=== PATIENT | male | born 1980 | race Caucasian/White ===

== ENCOUNTER 2017-01-01 01:03 | Emergency (ER) | payer MEDICARE, MEDICAID ==
[~2017-01-01] VITALS: Ht 160 cm; Wt 101.6 kg
[~2017-01-01 01:03] MED LIST: HYDR-4078 PO; NO HOME MEDS; TRAM50TA4 PO
--- OUTSIDE RECORDS SUMMARY | 2017-01-01 01:08 | XMS REPORT | Continuity of Care Document ---
Author Author [facility] Organization [facility] Address Unknown Phone Unavailable Allergies Active Description Code Type Severity Reaction Onset Reported/Identified Relationship to Patient Clinical Status Yes No Known Allergies No Known Allergies Drug Allergy Unknown N/A 01/17/2012 Medications Medication Packaging Start Date Stop Date Route Dosage Sig ceFAZolin 1GM VIAL VL 09/27/2015 09/27/2015 IV PRE-OP LACTATED RINGERS 1000 ML IV SOLN BAG 09/27/2015 09/27/2015 IV PRE-OP SODIUM CHLORIDE PF 0.9% 10ML INJ VL 09/27/2015 09/27/2015 IVP ONCE LACTATED RINGERS 1000 ML IV SOLN BAG 09/27/2015 09/27/2015 IV ONCE THROMBIN 5000 UNIT VIAL VL 09/27/2015 09/27/2015 TOP ONCE SODIUM CHLORIDE 0.9% 1000ML IRRIG SOLN EA 09/27/20152015 IRR ONCE VANCOMYCIN 1GM INJ VL 09/27/2015 09/27/2015 PB ONCE ceFAZolin 1GM VIAL VL 09/27/2015 09/27/2015 IVP ONCE BUPIVACAINE W/ EPI 0.25% INJ [10 ML] VL 09/27/2015 09/27/2015 ID ONCE MIDAZOLAM 2MG/2ML INJ VL 09/27/2015 09/27/2015 IV PRE-OP fentaNYL 100 MCG/2ML INJ AMP 09/27/2015 09/27/2015 IV PRE-OP PROPOFOL 1000MG/100ML INJ EA 09/27/2015 09/27/2015 IV ONCE fentaNYL 250 MCG/5ML INJ AMP 09/27/2015 09/27/2015 IV ONCE hydroMORPHONE 2MG/1ML INJ ML 09/27/2015 09/27/2015 IV ONCE * Ready to Reconcile EA 09/27/2015 09/27/2015 PO ASDIR SUCCINYLCHOLINE 100MG/5ML SYRINGE [COMPOUND] DOS 09/27/2015 IVP ONCE fentaNYL 250 MCG/5ML INJ AMP 09/27/2015 09/27/2015 IV ONCE SUCCINYLCHOLINE 100MG/5ML SYRINGE [COMPOUND] DOS 09/27/2015 IVP ONCE LIDOCAINE 2% SYRINGE [100MG/5ML] SYR 09/27/2015 09/27/2015 IVP ONCE ONDANSETRON 4MG/2ML INJ VL 09/27/2015 09/27/2015 IVP ONCE ROCURONIUM 50MG/5ML INJ VL 09/27/2015 09/27/2015 IVP ONCE fentaNYL 250 MCG/5ML INJ AMP 09/27/2015 09/27/2015 IV ONCE PROPOFOL 1000MG/100ML INJ EA 09/27/2015 09/27/2015 IV ONCE ceFAZolin 1GM VIAL VL 09/27/2015 09/28/2015 IVP Q8H&0000,0800, 1600 VANCOMYCIN 1GM INJ VL 09/27/2015 09/27/2015 PB ONCE hydroMORPHONE 2MG/1ML INJ ML 09/27/2015 09/27/2015 IV ONCE MAGNESIUM HYDROXIDE 2400MG/30ML SUSP EA 09/27/2015 09/26/2016 PO PRN MORPHINE 4MG/1ML SYRINGE ML 09/27/2015 09/26/2016 IVP [id number] OXYcodone/ACETAMINOPHEN 10-325 MG TABLET TAB 09/27/20152016 PO [id number] BISACODYL 10MG SUPPOS. SUP 09/27/2015 09/26/2016 MT* PRN ONDANSETRON 4MG TABLET TAB 09/27/2015 09/26/2016 PO [id number] DIAZEPAM 5MG TABLET TAB 09/27/2015 09/26/2016 PO [id number] BISACODYL 5MG TABLET TAB 09/27/2015 09/26/2016 PO PRN SODIUM CHLORIDE 0.9% 1000ML IV SOLN BAG 09/27/2015 09/28/2015 LVP 100ML/HR ONDANSETRON 4MG/2ML INJ VL 09/27/2015 09/26/2016 IVP [id number] hydroMORPHONE 2MG/1ML INJ ML 09/27/2015 09/27/2015 IV POST-OP ONDANSETRON 4MG/2ML INJ VL 09/27/2015 09/27/2015 IV POST-OP METOCLOPRAMIDE 10MG/2ML INJ VL 09/27/2015 09/27/2015 IVP ONCE METOCLOPRAMIDE 10MG TABLET TAB 09/27/2015 09/26/2016 PO [id number] METOCLOPRAMIDE 10MG/2ML INJ VL 09/27/2015 09/26/2016 IVP [id number] *HYDROcodone/ACETAMINOPHEN 10-325 MG TABLET TAB 10/26/2015 PO Q4-6HPRN Problems Date Dx Coded Attending Type Code Diagnosis Diagnosed By 08/07/2012 Perry ALBARRAN, Shadi Dunn 724.2 LUMBAGO 09/30/2015 JENARO CABELLO DF E66.01 Morbid (severe) obesity 09/30/2015 JENARO CABELLO DF M21.372 Foot drop, left foot 09/30/2015 JENARO CABELLO DF M43.17 Spondylolisthesis, lumbo 09/30/2015 JENARO CABELLO DF M54.17 Radiculopathy, lumbosacr 09/30/2015 JENARO CABELLO DF Z68.41 Body mass index (BMI) 40 Procedures Code Description Performed By Performed On 87.21 CONTRAST MYELOGRAM Baldemar ALBARRAN, Shahriar Suazo 08/07/2012 [id number] Fusion of Lumbosacral Joint with Autolog JENARO CABELLO 09/27/2015 [id number] Fusion of Lumbosacral Joint with Interbo JENARO CABELLO 09/27/2015 [id number] Resection of Lumbosacral Disc, Open Appr JENARO CABELLO 09/27/2015 [id number] Monitoring of Peripheral Nervous Electri JENARO CABELLO 09/27/2015 Results Test Result Range GRAM STAIN - 11/04/15 07:17 Microbiology GRAM STAIN - 11/04/15 07:18 Microbiology Encounters ACCT No. Visit Date/Time Discharge Status Pt. Type Provider Facility Loc./Unit Complaint [id number] 09/27/2015 11:02:00 09/30/2015 12: 23:00 DIS 01 JENARO CABELLO [facility] INPT NO KNOWN INJURY 09/27/15 RM,L5-S1 spondylolisthesis
--- OUTSIDE RECORDS SUMMARY | 2017-01-01 01:08 | XMS REPORT | Continuity of Care Document ---
Author Author [facility] Organization [facility] Address Unknown Phone Unavailable Support Name Relationship Address Phone WOLFGANG WYNNE DO Caregiver [facility] [address] [place] [address] SUDHA YOUNG MD Caregiver [address] [place] [address] KYLE CRAWFORD Next Of Kin [address] [place] [address] Insurance Providers Payer Name Policy Number Subscriber Name Relationship Medicare [id number] Shadi Crawford 18 Self Medicaid [place] [id number] Shadi Crawford 18 Self Problems Medical Problems Problem Onset Date Status Headache Unknown Active Hip pain Unknown Active Medications Medication Dose Route Sig Days/Qty Instructions Order Date Discontinued Date Status [None] 01/23/10 09/29/10 Discontinued Ibuprofen 400 Mg PO NEEDED 08/24/11 12/14/11 Discontinued [[place]] 5 Mg PO DAILY 12/14/11 04/10/12 Discontinued [[place]] 10 Mg PO DAILY 12/14/11 04/10/12 Discontinued Oxycodone Hcl/Acetaminophen 1 Tab PO 01/02/12 04/10/12 Discontinued [Lortab] 1 THREE TIMES A DAY 06/10/14 Active Cyclobenzaprine HCl 1 Tab PO THREE TIMES A DAY 06/10/14 Active Tramadol HCl 50 Mg PO Every 8 Hours PRN PAIN 06/10/14 Active Social History Social History Problem Response Recorded Date/Time Smoking Status Current some day smoker 06/10/2014 6:45pm Hx Substance Use No 06/10/2014 6:45pm Hx Alcohol Use Y SOCIALLY 06/10/2014 6:45pm Query Response Start Date Stop Date Smoking Status Unknown if ever smoked Hospital Discharge Instructions No hospital discharge instructions. Plan of Care No plan of care. Functional Status Query Response Date Recorded Physical Hygiene Self June 10, 2014 6:45pm Disabilities None June 10, 2014 6:45pm Devices Used None June 10, 2014 6:45pm Dressing Self June 10, 2014 6:45pm Ambulation Self June 10, 2014 6:45pm Diet Self June 10, 2014 6:45pm Mental Status Alert Oriented June 10, 2014 6:45pm Disabilities None June 10, 2014 6:45pm Devices Used None June 10, 2014 6:45pm Physical Hygiene Self June 10, 2014 6:45pm Dressing Self June 10, 2014 6:45pm Ambulation Self June 10, 2014 6:45pm Diet Self June 10, 2014 6:45pm Allergies, Adverse Reactions, Alerts Allergen Type Severity Reaction Status Last Updated No Known Allergies Active 06/10/14 Immunizations Name Given Type Hx Influenza Vaccination Y FALL 2013 Historical Hx Tetanus, Diptheria, Pertussis N 2000 Historical Hx Influenza Vaccination Y FALL 2013 Historical Hx Tetanus, Diptheria, Pertussis N 2000 Historical Vital Signs Acute Vital Signs Vital Response Date/Time Temperature (Fahrenheit) 97.7 deg F (96.8 - 99.1) Temperature (Calculated Celsius) 36.83810 degrees C (36.0 - 37.3) Pulse Rate (adult) 104 bpm (60 - 100) Respiratory Rate 18 breaths/min (10 - 20) O2 Sat by Pulse Oximetry 95 % (90 - 100) Blood Pressure 125/66 mm Hg Height 5 ft 3 in Weight 232 lb Body Mass Index 41.0 kg/m^2 Results Test Source Date Result Interp. Ref. Range Comments Alanine Aminotransferase (ALT/SGPT) January 20, 2011 4:27pm 41 U/L N 21-72 Albumin January 20, 2011 4:27pm 4.7 G/DL N 3.5-5.0 Albumin/Globulin Ratio January 20, 2011 4:27pm 1.7 RATIO N 1.1-2.2 Alkaline Phosphatase January 20, 2011 4:27pm 101 U/L N 38-126 Anion Gap June 10, 2014 6:47pm 17 MEQ/L H 5-15 Aspartate Amino Transf (AST/SGOT) January 20, 2011 4:27pm 34 U/L N 17-59 BUN/Creatinine Ratio June 10, 2014 6:47pm 19 RATIO N 6-26 Band Neutrophils # June 10, 2014 6:47pm 0.0 T/MM3 - Band Neutrophils % June 10, 2014 6:47pm 0.0 % N 0-6 Basophils # (Auto) January 20, 2011 4:27pm 0.1 T/MM3 N 0-0.2 Basophils # (Manual) June 10, 2014 6:47pm 0.0 T/MM3 N 0-0.2 Basophils % (Manual) June 10, 2014 6:47pm 0.0 % N 0-2 Basophils (%) (Auto) January 20, 2011 4:27pm 0.5 % N 0-2 Blood Urea Nitrogen June 10, 2014 6:47pm 21.0 MG/DL H 9-20 Calcium Level June 10, 2014 6:47pm 10.1 MG/DL N 8.4-10.2 Calculated Osmolality June 10, 2014 6:47pm 282 MOSM/KG H 261-280 Carbon Dioxide Level June 10, 2014 6:47pm 22 MEQ/L N 22-30 Chemistry Specimen Hemolysis June 10, 2014 6:47pm < 15 0-25 0-25: No Hemolysis.26-70: Slight Hemolysis - can falsely elevate K and Urine Protein. 71-285: Moderate Hemolysis - can falsely elevate K, Troponin I, CA 19-9, PTH, CSF GLucose, and Urine Protein, and can falsely decrease Phenytoin. 286-999: Gross Hemolysis - can falsely elevate K, Troponin I, CA 19-9, PTH, CSF Glucose, and Urine Protine, and can falsely decrease Phenytoin. Recommend specimen recollection. Chloride Level June 10, 2014 6:47pm 104 MEQ/L N 98-107 Cholesterol Level July 27, 2009 9:10am 267 MG/DL H 132-199 Cholesterol/HDL Ratio July 27, 2009 9:10am 5.8 RATIO H 0-5.0 Clostridium Difficile Toxin A & B January 28, 2008 9:19am Negative - Conjugated Bilirubin January 03, 2011 5:52pm 0.00 MG/DL N 0.00-0.30 Creatinine June 10, 2014 6:47pm 1.1 MG/DL N 0.8-1.5 Differential Total Cells Counted January 03, 2011 5:52pm 100 % - Eosinophils # (Auto) January 20, 2011 4:27pm 0.2 T/MM3 N 0-0.5 Eosinophils # (Manual) June 10, 2014 6:47pm 0.0 T/MM3 N 0-0.5 Eosinophils % (Manual) June 10, 2014 6:47pm 0.0 % N 0-4 Eosinophils (%) (Auto) January 20, 2011 4:27pm 1.4 % N 0-4 Free Thyroxine July 27, 2009 9:10am 0.92 NG/DL N 0.78-2.19 Globulin January 20, 2011 4:27pm 2.7 G/DL N 2.4-3.6 Glomerular Filtration Rate Calc June 10, 2014 6:47pm 76 - Glucose Level June 10, 2014 6:47pm 173 MG/DL H 75-110 HDL Cholesterol Direct July 27, 2009 9:10am 46 MG/DL N 40-60 Hematocrit June 10, 2014 6:47pm 49.6 % N 41-53 Hemoglobin June 10, 2014 6:47pm 17.0 GM/DL N 13.5-17.5 Icterus Index June 10, 2014 6:47pm < 2 0-7 Immature Granulocyte # (Auto) January 20, 2011 4:27pm 0.02 T/MM3 N 0.00- 0.03 Immature Granulocyte % (Auto) January 20, 2011 4:27pm 0.2 % N 0.0-0.5 Influenza Type A Antigen January 16, 2009 12:45pm Negative - Influenza Type B Antigen January 16, 2009 12:45pm Negative - LDL Cholesterol, Calculated July 27, 2009 9:10am 172.0 H 66-159 Lab Scanned Report January 03, 2011 10:17pm LAB TEST FORM REQUEST [id number] - Lipase January 21, 2008 10:00pm 135 U/L N 23-300 Lymphocytes # (Auto) January 20, 2011 4:27pm 3.0 T/MM3 N 1-4.8 Lymphocytes # (Manual) June 10, 2014 6:47pm 0.6 T/MM3 L 1-4.8 Lymphocytes % (Manual) June 10, 2014 6:47pm 6.0 % L 23-45 Lymphocytes (%) (Auto) January 20, 2011 4:27pm 27.8 % N 23-45 Mean Corpuscular Hemoglobin June 10, 2014 6:47pm 31.1 UUG N 26-34 Mean Corpuscular Hemoglobin Concent June 10, 2014 6:47pm 34.3 GM/DL N 31-37 Mean Corpuscular Volume June 10, 2014 6:47pm 90.8 UM3 N 80-100 Mean Platelet Volume June 10, 2014 6:47pm 10.4 UM3 N 9.4-12.4 Monocytes # (Auto) January 20, 2011 4:27pm 0.6 T/MM3 N 0-0.8 Monocytes # (Manual) June 10, 2014 6:47pm 0.0 T/MM3 N 0-0.8 Monocytes % (Manual) June 10, 2014 6:47pm 0.0 % N 0-9.0 Monocytes (%) (Auto) January 20, 2011 4:27pm 5.8 % N 0-9.0 Neutrophils # (Auto) January 20, 2011 4:27pm 6.8 T/MM3 N 1.8-7.7 Neutrophils # (Manual) June 10, 2014 6:47pm 8.6 T/MM3 H 1.8-7.7 Neutrophils % (Manual) June 10, 2014 6:47pm 92.0 % H 33-66 Neutrophils (%) (Auto) January 20, 2011 4:27pm 64.3 % N 33-66 Ova and Parasites (LAB) January 28, 2008 9:19am Sent out - Platelet Count June 10, 2014 6:47pm 232 T/MM3 N 130-400 Potassium Level June 10, 2014 6:47pm 4.4 MEQ/L N 3.6-5 RDW Standard Deviation June 10, 2014 6:47pm 40.9 FL N 36.9-50.2 Reactive Lymphocytes # June 10, 2014 6:47pm 0.2 T/MM3 H 0-0 Reactive Lymphocytes % June 10, 2014 6:47pm 2.0 % H 0-0 Red Blood Count June 10, 2014 6:47pm 5.46 M/MM3 N 4.50-5.90 Sodium Level June 10, 2014 6:47pm 143 MEQ/L N 134-144 Stool Occult Blood January 03, 2011 7:00pm Negative - Tests Not Done January 16, 2009 11:01am Not done - Has specimen been collected/obtained? Y Thyroid Stimulating Hormone (TSH) July 27, 2009 9:10am 2.38 MIU/ML N 0.47-4.68 Total Bilirubin January 20, 2011 4:27pm 1.00 MG/DL N 0.20-1.30 Total Protein January 20, 2011 4:27pm 7.4 G/DL N 6.3-8.2 Triglycerides Level July 27, 2009 9:10am 245 MG/DL H 40-160 Turbidity June 10, 2014 6:47pm < 20 0-20 Unconjugated Bilirubin January 03, 2011 5:52pm 0.40 MG/DL N 0.00-1.10 Urine Bilirubin January 03, 2011 5:52pm Negative - Urine Blood January 03, 2011 5:52pm Negative - Urine Collection Type January 03, 2011 5:52pm Voided - Urine Color January 03, 2011 5:52pm Yellow - Urine Culture Indicated January 03, 2011 5:52pm Cult not indicated - Urine Glucose (UA) January 03, 2011 5:52pm Negative - Urine Ketones January 03, 2011 5:52pm Negative - Urine Leukocyte Esterase January 03, 2011 5:52pm Negative - Urine Mucus January 03, 2011 5:52pm Present - Urine Nitrite January 03, 2011 5:52pm Negative - Urine Protein January 03, 2011 5:52pm Negative - Urine RBC January 03, 2011 5:52pm None seen /HPF - Urine Specific [place] January 03, 2011 5:52pm 1.025 - Urine Turbidity January 03, 2011 5:52pm Clear - Urine Urobilinogen January 03, 2011 5:52pm Normal EU/DL - Urine WBC January 03, 2011 5:52pm 0-1 /HPF - Urine pH January 03, 2011 5:52pm 5.0 - VLDL Cholesterol July 27, 2009 9:10am 49.0 MG/DL H 0-28 White Blood Count June 10, 2014 6:47pm 9.4 T/MM3 N 4.5-11.0 Stool Culture Stool January 28, 2008 9:19am Procedures No known history of procedures. Encounters Encounter Location Date/Time Registered Emergency Room [facility] 06/10/14 5:59pm Recent Diagnosis
[2017-01-01 01:30] VITALS: TEMP 99.1; Ht 160 cm; Wt 101.6 kg
--- NOTE | 2017-01-01 01:56 | ERPDOC ---
Departure Disposition Decision Date: January 01, 2017 Disposition Decision Time: 03:30 Disposition: 01 DISCHARGED HOME, SELF-CARE Impression Impression Impression: Primary Impression: Back pain of lumbar region with sciatica Severity: Severe Condition: Improved Seen By: Physician only Referrals: JALEESA GUIDO (Family) 1 Week Patient Instructions: Acute Low Back Pain (ED), Sciatica (ED) Problems/Meds/Labs Reviewed?: Yes Medications reviewed and manag: Yes Additional Instructions: You have low back pain, caused by a pinched nerve. NSAIDs, muscle relaxers, ice/ heat, and rest help with the symptoms. You will need to follow up with your doctor for other medications that might help your pain (TCAs, SSRI, or gabapentin). Follow up with your doctor. Follow up care ordered?: Yes Mental Status: Alert, Oriented Scripts Cyclobenzaprine HCl (Cyclobenzaprine HCl) 10 Mg Tablet 10 MG PO TID Y for MUSCLE SPASM, #40 TAB 0 Refills Prov: DECEMBER,MANJIT Suazo DO 01/01/17 HPI - Back Pain General Chief Complaint: Low Back Pain or Injury Stated Complaint: BACK PAIN Time Seen by Provider: 01:51 Source: patient Exam Limitations: no limitations HPI - Back Pain Initial Comments 36yo man presents with acute LBP. Pt has an extensive h/o LBP and pathology. Has hardware in place. Was weaned off narcotics 5+ months ago and has been good since then. Pt has been losing wt as recommended by physicians; after losing 40 + #, pt can now feel hardware on the left. Pt had abrupt onset of left LBP tonight. Has not taken anything, because, "ibuprofen and tylenol don't do anything for the pain." Occurred At: home Onset/Timing: Rapid Duration: 4-6 hrs Pain/Severity Scale: Now & Worst: 8/10 Severity/Quality: severe Location: lumbar spine Radiation: buttocks, upper legs Method of Injury/Context: prior injury Modifying Factors: IMPROVES WITH: immobilization, WORSE WITH: jarring, movement Associated Sypmtoms: muscle spasms, tingling in legs/feet, DENIES: loss of bladder control, loss of bowel control, lower back pain, sensory/motor loss Hx of Similar Symptoms: Yes Allergies: Coded Allergies: No Known Allergies (Verified , 01/03/15) Past History Past Medical History ENMT: dental problems Neurological: headaches Musculoskeletal: back pain Surgical History General: appendix, back Joint: elbow Family History Family PMH: FOUND: diabetes Vaccines Hx Influenza Vaccination: No Hx Pneumococcal Vaccination: No Hx Tetanus, Diptheria, Pertuss: No (2000) Social History Sexuality: female partner Review of Systems Musculoskeletal General: pain Neurological General: numbness, weakness (Prior left foot drop after surgery) All other Systems All Other Systems: Reviewed and Negative Physical Exam General General Nourishment: well nourished, well developed, appears stated age, no acute distress, adult, obese General Body Habitus: well groomed Vitals and Pain First Documented Vital Signs Date Time Temp Pulse Resp B/P Pulse Ox O2 Delivery O2 Flow Rate FiO2 01/01/17 01:30 99.1 86 18 124/89 96 Room Air Weight: Kilograms: Height (feet): 5 Height (inches): 3.00 Triage Pain Scale: RN VS reviewed by Provider: Yes Musculoskeletal (brief) Musculoskeletal Brief: FOUND: spasm, NOT FOUND: deformity, loss of motion, tenderness Comments Foot drop noted on left side Musculoskeletal Extremity : Side: Bilateral Extremity: thigh, leg, foot, toe(s) Extremity Findings: FOUND: no abnormalities, NOT FOUND: deformity, discoloration, pain, swelling Neurologic DTR's : DTR Side: bilateral DTR Location: Patellar DTR Grade: 2+ Supervisory Exam Head: atraumatic Eyes: PERRL Nares: no exudate Neck: trachea midline Chest: symmetric Abdomen: non-distended Skin: pink, dry Psychological: alert, appropriate Differential Diagnoses Considering: Disc Herniation, Compression Fracture, Fracture, Lumbar Sprain, Lumbar Strain Progress Results/Orders Orders Procedure Category Date Status Time Ketorolac (Toradol) PHA 01/01/17 Complete 02:00 Orphenadrine (Norflex) PHA 01/01/17 Complete 02:00 Lumbar Spine 2-3 Views RAD 01/01/17 Resulted 01:59 Methylprednisolone PHA 01/01/17 Complete Sod Succ (Solu-Medrol 02:30 Tramadol (Ultram) PHA 01/01/17 Complete 03:15 Oxycodone/Apap 5/325 PHA 01/01/17 Complete (Prepack) (Percocet 03:30 Cyclobenzaprine PHA 01/01/17 Complete (Prepack) (Flexeril 03:45 Medications Current ED Medications Ketorolac Tromethamine (Toradol) 60 mg O ONCE IM Last administered on 02:30; Start 01/01/17 at 02:00; Stop 01/01/17 at 02:02; Status DC Orphenadrine Citrate (Norflex) 60 mg O ONCE IM Last administered on 01/01/17 02:32; Start 01/01/17 at 02:00; Stop 01/01/17 at 02:02; Status DC Methylprednisolone Sodium Succinate (Solu-Medrol) 125 mg O ONCE IV ; Start at 02:00; Stop 01/01/17 at 02:01; Status Cancel Methylprednisolone Sodium Succinate (Solu-Medrol) 125 mg O ONCE IM Last administered on 01/01/17 02:34; Start 01/01/17 at 02:30; Stop 01/01/17 at 02:31 ; Status DC Tramadol HCl (Ultram) 50 mg O ONCE PO Last administered on 01/01/17 03:09; Start 01/01/17 at 03:15; Stop 01/01/17 at 03:16; Status DC Oxycodone/ Acetaminophen (Percocet 5 (Prepack)) 1 pack O ONCE SENT HOME Last administered on 01/01/17 03:46; Start 01/01/17 at 03:30; Stop 01/01/17 at 03:31 ; Status DC Cyclobenzaprine HCl (FLEXERIL (PrePack)) 1 pack O ONCE SENT HOME Last administered on 01/01/17 03:45; Start 01/01/17 at 03:45; Stop 01/01/17 at 03:46 ; Status DC Progress Progress 36yo man with acute/chronic LBP with sciatica. Suspect strong anxiety component (pain did not become severe until pt 'felt' his hardware tonight). No acute findings on lumbar films - pts c/o 'poorly angled' hardware on left is not reproduced on films tonight. Because pt c/o tramadol not alleviating his pain, will give MRs and very short course of narcotics. Pt to f/u with PCM and operating surgeon. Pt to seek second opinion if he still feels that his hardware is the cause of his new/ongoing LBP. Pt voiced understanding of dx, prognosis, tx, and f/u need. Xray Xray : Xray: L-Spine Interpretation: Abnormal (Fusion of L4-S1), Interpreted by MANJIT Navarro DO January 01, 2017 01:56
[2017-01-01] MEDS ORDERED: KETOROLAC 60mg/2ml INJECTION IM ONE (02:00)
[2017-01-01] MEDS ORDERED: ORPHENADRINE 60mg/2ml INJECTION IM ONE (02:00)
--- NOTE | 2017-01-01 02:00 | NUR ---
IMAGING PT LEAVES WITH IMAGING STAFF VIA WHEELCHAIR AT THIS TIME.
--- NOTE | 2017-01-01 02:10 | NUR ---
RETURN PT RETURNS TO ROOM
--- NOTE | 2017-01-01 02:19 | NUR ---
BR PT AMBULATES TO BR.
--- OUTSIDE RECORDS SUMMARY | 2017-01-01 02:34 | XMS REPORT | Continuity of Care Document ---
Author Author [facility] Organization [facility] Address Unknown Phone Unavailable Support Name Relationship Address Phone WOLFGANG WYNNE DO Caregiver [facility] [address] [place] [address] SUDHA YOUNG MD Caregiver [address] [place] [address] KYLE CRAWFORD Next Of Kin [address] [place] [address] Insurance Providers Payer Name Policy Number Subscriber Name Relationship Medicare [id number] Shadi Crawford 18 Self Medicaid [place] [id number] Shadi Crawford 18 Self Problems Medical Problems [...] F (96.8 - 99.1) Temperature (Calculated Celsius) 36.37659 degrees C (36.0 - 37.3) Pulse Rate [...] 03, 2011 10:17pm LAB TEST FORM REQUEST [id number] - Lipase January 21, 2008 10:00pm 135 [...] 5:52pm None seen /HPF - Urine Specific [place] January 03, 2011 5:52pm 1.025 - Urine [...] Encounters Encounter Location Date/Time Registered Emergency Room [facility] 06/10/14 5:59pm Recent Diagnosis
--- OUTSIDE RECORDS SUMMARY | 2017-01-01 02:34 | XMS REPORT | Continuity of Care Document ---
Author Author [facility] Organization [facility] Address Unknown Phone Unavailable Allergies Active Description [...] MORPHINE 4MG/1ML SYRINGE ML 09/27/2015 09/26/2016 IVP [id number] OXYcodone/ACETAMINOPHEN 10-325 MG TABLET TAB 09/27/20152016 PO [id number] BISACODYL 10MG SUPPOS. SUP 09/27/2015 09/26/2016 MA* PRN ONDANSETRON 4MG TABLET TAB 09/27/2015 09/26/2016 PO [id number] DIAZEPAM 5MG TABLET TAB 09/27/2015 09/26/2016 PO [id number] BISACODYL 5MG TABLET TAB 09/27/2015 09/26/2016 PO PRN SODIUM CHLORIDE 0.9% 1000ML IV SOLN BAG 09/27/2015 09/28/2015 LVP 100ML/HR ONDANSETRON 4MG/2ML INJ VL 09/27/2015 09/26/2016 IVP [id number] hydroMORPHONE 2MG/1ML INJ ML 09/27/2015 09/27/2015 IV POST-OP ONDANSETRON 4MG/2ML INJ VL 09/27/2015 09/27/2015 IV POST-OP METOCLOPRAMIDE 10MG/2ML INJ VL 09/27/2015 09/27/2015 IVP ONCE METOCLOPRAMIDE 10MG TABLET TAB 09/27/2015 09/26/2016 PO [id number] METOCLOPRAMIDE 10MG/2ML INJ VL 09/27/2015 09/26/2016 IVP [id number] *HYDROcodone/ACETAMINOPHEN 10-325 MG TABLET TAB 10/26/2015 PO [...] CONTRAST MYELOGRAM Baldemar ALBARRAN, Shahriar Suazo 08/07/2012 [id number] Fusion of Lumbosacral Joint with Autolog JENARO CABELLO 09/27/2015 [id number] Fusion of Lumbosacral Joint with Interbo JENARO CABELLO 09/27/2015 [id number] Resection of Lumbosacral Disc, Open Appr JENARO CABELLO 09/27/2015 [id number] Monitoring of Peripheral Nervous Electri JENARO CABELLO 09/27/2015 Results Test Result Range GRAM STAIN - 11/04/15 07:17 Microbiology GRAM STAIN - 11/04/15 07:18 Microbiology Encounters ACCT No. Visit Date/Time Discharge Status Pt. Type Provider Facility Loc./Unit Complaint [id number] 09/27/2015 11:02:00 09/30/2015 12: 23:00 DIS 01 JENARO CABELLO [facility] INPT NO KNOWN INJURY 09/27/15 RM,L5-S1 spondylolisthesis
--- NOTE | 2017-01-01 03:00 | NUR ---
STATUS PT REPORTS NO IMPROVEMENT IN HIS BACK PAIN, DR MESA IS NOTIFIED, NEW ORDERS WILL BE ENTERED.
[2017-01-01] MEDS ORDERED: TRAMADOL 50 MG TABLET PO ONE (03:15)
[2017-01-01] MEDS ORDERED: OXYCODONE/APAP 5/325 (Prepack) SENT HOME ONE (03:30)
[2017-01-01] MEDS ORDERED: CYCL-375 PO (03:31)
[2017-01-01] MEDS ORDERED: CYCLOBENZAPRINE 10MG (PrePack) SENT HOME ONE (03:45)
[2017-01-01 03:49] VITALS: BP 143/87; PULSE 76; RESP 16; O2SAT 96
--- NOTE | 2017-01-01 03:49 | NUR ---
DEPART PT IS DISCHARGED AT THIS TIME, INSTRUCTIONS ARE REVIEWED AND UNDERSTANDING IS VOICED. PT LEAVES AMBULATORY.
--- NOTE | 2017-01-01 07:59 | DI ---
Indication: ITS.REASON: pain LUMBAR SPINE 2-3 VIEWS: Comparison: Previous myelogram from 04/28/2015 Technique: AP, lateral and cone-down lateral view of the lumbar spine Findings: Patient showed postoperative changes of previous lumbar stabilization with posterior hardware in place from L4 through S1. Facet discs are also seen at L4-5 and L5-S1 levels. There is a slight offset of L5 on S1 which is unchanged since previous CT myelogram. No marked change in the alignment or orientation is identified. No new fractures are seen. 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 This is unchanged since prior study as well. Impression: 1. Posterior stabilization and disc replacement from L4 through S1 with the continued mild grade 1 offset of L5 on S1. 2. No acute fractures or marked change in the alignment appreciated. .
== END 2017-01-01 03:49 | disposition home or self-care (01) ==
LOC: ED 01:03
DX: M54.42 Lumbago with sciatica, left side (principal)
CPT/HCPCS: 72100; 96372; 99283; A9270; J1885; J2360; J2930

== ENCOUNTER 2017-01-02 23:35 | Emergency (ER) | payer MEDICARE, MEDICAID ==
[~2017-01-02] VITALS: Ht 160 cm; Wt 101.9 kg
[~2017-01-02 23:35] MED LIST changes: +CYCL-375 PO; -HYDR-4078 PO; -TRAM50TA4 PO
--- OUTSIDE RECORDS SUMMARY | 2017-01-02 23:41 | XMS REPORT | Continuity of Care Document ---
Author Author [facility] Organization [facility] Address Unknown Phone Unavailable Support Name Relationship Address Phone DECEMBER, MANJIT Suazo DO Caregiver [address] [place] [address] Unavailable JALEESA GUIDO Caregiver [address] [place] [address] Unavailable KYLE CRAWFORD Next Of Kin [address] [place], [place] [id number] Insurance Providers Guarantor Shadi Crawford Address [address] [place] [address] Phone UN Email DENIED 17 Payer Medicaid Policy Number [id number] Subscriber's Name Shadi Crawford Relationship 18 Self Effective Date 16 Expiration Date 17 Payer Medicare Policy Number [id number] Subscriber's Name Shadi Crawford Relationship 18 Self Payer [employer] Policy Number [id number] Subscriber's Name Shadi Crawford Relationship 18 Self Chief Complaint and Reason for Visit Chief Complaint Low Back Pain or Injury Reason for Visit Back pain of lumbar region with sciatica Problems Active Problems Medical Problem Onset Date Status Chest wall pain Unknown Acute Chest wall pain Unknown Acute Coccyx pain Unknown Acute Costochondritis Unknown Acute Costochondritis Unknown Acute Exacerbation of chronic back pain Unknown Acute Headache Unknown Acute Headache Unknown Acute Hip pain Unknown Acute Narcotic dependence Unknown Acute Past Problems Medical Problem Onset Date Back pain of lumbar region with sciatica Unknown Medications Current Home Medications Medication Dose Units Route Directions Days Qty Instructions Start Date Cyclobenzaprine Hcl 10 Mg Tablet 10 Mg Oral Three Times A Day as needed for Muscle Spasm 40 Tablet 01/01/17 No Home Meds 03/28/15 Past Home Medications Medication Directions Ordered Status Cyclobenzaprine Hcl 10 Mg Tablet, 1 Tab Oral Three Times A Day for Spasms Discontinued Gabapentin 300 Mg Capsule, Unknown Dose Oral Three Times A Day 12/17/14 Discontinued Hydrocodone/Acetaminophen (Neopit 10-325 Tablet) 1 Each Tablet, 1 Tab Oral Every 4 Hours as needed for Pain 04/28/15 Discontinued Ibuprofen 400 Mg Tablet, 400 Mg Oral As Needed 08/24/11 Discontinued None , 01/23/10 Discontinued Oxycodone Hcl/Acetaminophen (Percocet 7.5/325 Mg Tablet) 1 Tab Tablet, 1 Tab Oral 01/02/12 Discontinued Prednisone 20 Mg Tablet, 60 Mg Oral Daily 03/28/15 Discontinued Taberson , 5 Mg Oral Daily 12/14/11 Discontinued Tramadol Hcl 50 Mg Tablet, 50 Mg Oral Every 4 Hours 04/28/15 Discontinued Zembican , 10 Mg Oral Daily 12/14/11 Discontinued Zolpidem Tartrate (Ambien) 5 Mg Tablet, Unknown Dose Oral Bedtime 12/17/14 Discontinued Social History Social History Problem Response Recorded Date/Time Onset Date Status Chewing Tobacco Status No 01/01/2017 2:19am Not Applicable Not Applicable Hx Substance Use No 01/01/2017 2:19am Not Applicable Not Applicable Hx Alcohol Use Y social 01/01/2017 2:19am Not Applicable Not Applicable Has the pt used tobacco in the last 12 months Yes 04/28/2015 11:20am Not Applicable Not Applicable Query Response Start Date Stop Date Smoking Status Never smoker Hospital Discharge Instructions No hospital discharge instructions. Plan of Care Discharge Date 01/01/17 3:49am Disposition 01 DISCHARGED HOME, SELF-CARE Condition at Discharge Improved Instructions/Education Provided Sciatica (ED) Acute Low Back Pain (ED) Prescriptions See Medication Section Referrals JALEESA GUIDO Order Date: 1 Week Address: [address] [place] [id number] Note: Additional Instructions/Education You have low back pain, caused by a pinched nerve. NSAIDs, muscle relaxers, ice/heat, and rest help with the symptoms. You will need to follow up with your doctor for other medications that might help your pain (TCAs, SSRI, or gabapentin). Follow up with your doctor. Care Plan and Goals Physician Care Plan Problem: LBP Goal: Follow up with primary care provider Instructions: Take medications and follow care plan as discussed/written Functional Status No functional status results. Allergies, Adverse Reactions, Alerts No known allergies. Immunizations Query Response on File Recorded Date/Time Hx Influenza Vaccination No 04/28/15 11:20am Hx Pneumococcal Vaccination No 04/28/15 11:20am Hx Tetanus, Diptheria, Pertussis N 2001 03/28/15 7:31pm Hx Influenza Vaccination No 04/28/15 11:20am Hx Tetanus, Diptheria, Pertussis N 200003/28/15 7:31pm Vital Signs Acute Vital Signs Vital Response Date/Time Temperature (Fahrenheit) 99.1 deg F (96.8 - 99.1) 01/01/2017 1:30am Temperature (Calculated Celsius) 37.89278 degrees C (36.0 - 37.3) 01/01/2017 1:30am Pulse Rate (adult) 76 bpm (60 - 100) 01/01/2017 3:49am Respiratory Rate 16 breaths/min (10 - 20) 01/01/2017 3:49am O2 Sat by Pulse Oximetry 96 % (90 - 100) 01/01/2017 3:49am Blood Pressure 143/87 mm Hg 01/01/2017 3:49am Height (Feet) 5 feet 01/01/2017 1:30am Height (Inches) 3.00 inches 01/01/2017 1:30am Weight (Kilograms) 101.600 kg 01/01/2017 1:30am Body Mass Index (BMI) 39.0 01/01/2017 1:30am Results No known relevant diagnostic tests, laboratory data and/or discharge summary. Procedures No known history of procedures. Encounters Encounter Location Arrival/Admit Date Discharge/Depart Date Attending Provider Departed Emergency Room [facility] 01/01/17 1:03am 01/01/17 3: 49am MANJIT MESA DO Recent Diagnosis
--- OUTSIDE RECORDS SUMMARY | 2017-01-02 23:41 | XMS REPORT | Continuity of Care Document ---
Author Author [facility] Organization [facility] Address Unknown Phone Unavailable Support Name Relationship Address Phone WOLFGANG WYNNE DO Caregiver [facility] [address] [place] [address] SUDHA YOUNG MD Caregiver [address] [place] [address] KYLE CRAWFORD Next Of Kin [address] [place] [address] Insurance Providers Payer Name Policy Number Subscriber Name Relationship Medicare [id number] Shadi Crawford 18 Self Medicaid [place] [id number] Shadi Crawford 18 Self Problems Medical Problems [...] F (96.8 - 99.1) Temperature (Calculated Celsius) 36.47352 degrees C (36.0 - 37.3) Pulse Rate [...] 03, 2011 10:17pm LAB TEST FORM REQUEST [id number] - Lipase January 21, 2008 10:00pm 135 [...] 5:52pm None seen /HPF - Urine Specific [place] January 03, 2011 5:52pm 1.025 - Urine [...] Encounters Encounter Location Date/Time Registered Emergency Room [facility] 06/10/14 5:59pm Recent Diagnosis
--- OUTSIDE RECORDS SUMMARY | 2017-01-02 23:41 | XMS REPORT | Continuity of Care Document ---
Author Author [facility] Organization [facility] Address Unknown Phone Unavailable Allergies [...] MORPHINE 4MG/1ML SYRINGE ML 09/27/2015 09/26/2016 IVP [id number] OXYcodone/ACETAMINOPHEN 10-325 MG TABLET TAB 09/27/20152016 PO [id number] BISACODYL 10MG SUPPOS. SUP 09/27/2015 09/26/2016 [place]* PRN ONDANSETRON 4MG TABLET TAB 09/27/2015 09/26/2016 PO [id number] DIAZEPAM 5MG TABLET TAB 09/27/2015 09/26/2016 PO [id number] BISACODYL 5MG TABLET TAB 09/27/2015 09/26/2016 PO PRN SODIUM CHLORIDE 0.9% 1000ML IV SOLN BAG 09/27/2015 09/28/2015 LVP 100ML/HR ONDANSETRON 4MG/2ML INJ VL 09/27/2015 09/26/2016 IVP [id number] hydroMORPHONE 2MG/1ML INJ ML 09/27/2015 09/27/2015 IV POST-OP ONDANSETRON 4MG/2ML INJ VL 09/27/2015 09/27/2015 IV POST-OP METOCLOPRAMIDE 10MG/2ML INJ VL 09/27/2015 09/27/2015 IVP ONCE METOCLOPRAMIDE 10MG TABLET TAB 09/27/2015 09/26/2016 PO [id number] METOCLOPRAMIDE 10MG/2ML INJ VL 09/27/2015 09/26/2016 IVP [id number] *HYDROcodone/ACETAMINOPHEN 10-325 MG TABLET TAB 10/26/2015 PO [...] CONTRAST MYELOGRAM Baldemar ALBARRAN, Shahriar Suazo 08/07/2012 [id number] Fusion of Lumbosacral Joint with Autolog JENARO CABELLO 09/27/2015 [id number] Fusion of Lumbosacral Joint with Interbo JENARO CABELLO 09/27/2015 [id number] Resection of Lumbosacral Disc, Open Appr JENARO CABELLO 09/27/2015 [id number] Monitoring of Peripheral Nervous Electri JENARO CABELLO 09/27/2015 Results Test Result Range GRAM STAIN - 11/04/15 07:17 Microbiology GRAM STAIN - 11/04/15 07:18 Microbiology Encounters ACCT No. Visit Date/Time Discharge Status Pt. Type Provider Facility Loc./Unit Complaint [id number] 09/27/2015 11:02:00 09/30/2015 12: 23:00 DIS 01 JENARO CABELLO [facility] INPT NO KNOWN INJURY 09/27/15 RM,L5-S1 spondylolisthesis
[2017-01-03 00:10] VITALS: TEMP 98.6; Ht 160 cm; Wt 101.9 kg
[2017-01-03] MEDS ORDERED: BUPIVACAINE 0.5% (5mg/ml) 30ml INJ SDV INFIL ONE (01:00)
--- NOTE | 2017-01-03 01:01 | ERPDOC ---
Departure Disposition Decision Date: January 03, 2017 Disposition Decision Time: 01:34 (EDGARD SIDDIQUI APRN) Disposition: 01 DISCHARGED HOME, SELF-CARE Impression Impression (AURY LUNDBERG MD) Impression: Primary Impression: Laceration of hand Encounter type: initial encounter Foreign body presence: without foreign body Laterality: right Qualified Codes: S61.411A - Laceration without foreign body of right hand, initial encounter Severity: Moderate (EDGARD SIDDIQUI APRN) Condition: Stable Seen By: Physician and Mid-level (EDGARD SIDDIQUI APRN) Referrals: SUDHA YOUNG MD (PCP) JALEESA GUIDO (Family) Patient Instructions: Laceration (ED) Problems/Meds/Labs Reviewed?: Yes Medications reviewed and manag: Yes (EDGARD SIDDIQUI APRN) Additional Instructions: Wash the laceration daily with soap and water. Have the sutures taken out in 10- 14 days with your primary care provider. If you should have any further issues/ concerns then please return to ER for reevaluation. Mental Status: Alert, Oriented (AURY LUNDBERG MD) Follow up care ordered?: Yes Mental Status: Alert (EDGARD SIDDIQUI APRN) HPI General Chief Complaint: Laceration Stated Complaint: HAND LAC Time Seen by Provider: 00:56 Source: patient Exam Limitations: no limitations (AURY LUNDBERG MD) HPI Hand/Forearm Initial Comments Patient sustaied a laceration to the dorsum of the right thumb 5 hours ago while working on his lawnmower in his garage. Patient waited at home for several hours, but it's uncertain why. Initially the patient stated he had no ride, when the examiner asked the patient about this he simply stated that he wanted to wait and see what would happen. Patient now states that he's having some tingling and numbness down the side of the thumb just underneath the laceration, and it has been that way since the initial injury. Occurred At: home Onset: Rapid Duration: 4-6 hrs Severity: moderate Location: right: thumb 1 - 3 cm laceration to the dorsum of the thumb over the MP joint Associated Symptoms: numbness, pain with extension, pain with flexion, pain with grasp, DENIES: bruising, pallor, red streaks, redness, swelling, weakness ( AURY LUNDBERG MD) Allergies: Coded Allergies: No Known Allergies (Verified , 01/03/17) Past History Past Medical History ENMT: dental problems Neurological: headaches Musculoskeletal: back pain (AURY LUNDBERG MD) Surgical History General: appendix, back Joint: elbow (AURY LUNDBERG MD) Family History Family PMH: FOUND: diabetes (AURY LUNDBERG MD) Vaccines Hx Influenza Vaccination: No Hx Pneumococcal Vaccination: No Hx Tetanus, Diptheria, Pertuss: No (2000) (AURY LUNDBERG MD) Social History Alcohol Usage: none Drug Usage: none IV Drug Use: No Sexuality: female partner Residence: home (AURY LUNDBERG MD) Review of Systems Constitutional Constitutional: DENIES: appetite decrease, appetite increase, chills, dizziness , fever, weakness (AURY LUNDBERG MD) ENMT Ears: DENIES: pain Hearing: DENIES: hearing loss, tinnitus Balance: DENIES: vertigo Mouth/Throat: DENIES: change in swallowing, change in voice, hoarsness, painful swallowing, sore throat (AURY LUNDBERG MD) Cardiovascular Cardiac: DENIES: chest pain, dyspnea on exertion Rhythm/Rate: DENIES: irregular beat, palpitations, tachycardia Vascular: DENIES: pedal edema (AURY LUNDBERG MD) Pulmonary Respiratory: DENIES: cough, dyspnea, pleuritic chest pain (AURY LUNDBERG MD) GI Upper Abdomen: DENIES: dysphagia, heartburn/indigestion, nausea, pain, vomiting Lower Abdomen: DENIES: blood in stool, constipation, diarrhea, pain (AURY LUNDBERG MD) General: DENIES: burning, dysuria, frequency, pain, urgency (AURY LUNDBERG MD) Musculoskeletal General: DENIES: cramps, joint pain, joint swelling, pain, weakness (AURY LUNDBERG MD) Integumentary Skin: DENIES: rash, sores (AURY LUNDBERG MD) Neurological General: DENIES: headache, numbness, tingling, vertigo, weakness (AURY LUNDBERG MD) Exam General General Nourishment: well nourished, well developed, appears stated age, no acute distress General Body Habitus: well groomed Vital Signs: RN Vital Signs have been reviewed: Yes, Temperature: 98.6, Source : Oral, Heart Rate: 92, Respiratory Rate: 16, BP: 139/79, Pulse Oximetry: 98 Height (Feet): 5 Height (Inches): 3.00 (AURY LUNDBERG MD) Fastrak Hand/Forearm Comments 3 cm laceration to the dorsum of the thumb at the MP joint, full thickness, functional he the patient has normal range of motion and sensation in the thumb at this time, although he describes a paresthesia running along the radial/ lateral line and from the aspiration distally. (AURY LUNDBERG MD) Neurologic RN Documented GCS Eye Opening: (4)Spontaneous Verbal: (5)Oriented Motor: (6)Obeys Commands Total: (AURY LUNDBERG MD) Procedures Procedures Performed Procedures Performed: Laceration Repair (EDGARD SIDDIQUI APRN) Laceration/Wound Repair Wound/Laceration Repair : Wound Location: upper extremity (right hand) Wound Length (cm): 1.5 Depth, Shape: subcutaneous, linear Explored: clean Irrigated: saline Prep: chlorasept Anesthesia: 1% Lidocaine Volume Anesthetic (ccs): 1 Type of Block: local Repaired With: Sutures Suture Size: 4:0 Suture Type: prolene Number of Sutures: 3 Layer Closure?: No (EDGARD SIDDIQUI APRN) Progress Results/Orders Orders Procedure Category Date Status Time Bupivacaine 0.5% PHA 01/03/17 Complete (Marcaine 0.5%) 01:00 (EDGARD SIDDIQUI APRN) Medications Current ED Medications Bupivacaine HCl (Marcaine 0.5%) 150 mg O ONCE INFIL ; Start 01/03/17 at 01:00; Stop 01/03/17 at 01:01; Status DC (EDGARD SIDDIQUI APRN) AURY LUNDBERG MD January 03, 2017 01:01 EDGARD SIDDIQUI APRN January 03, 2017 01:36
--- OUTSIDE RECORDS SUMMARY | 2017-01-03 01:42 | XMS REPORT | Continuity of Care Document ---
Author Author [facility] Organization [facility] Address Unknown Phone Unavailable Support Name Relationship Address Phone WOLFGANG WNYNE DO Caregiver [facility] [address] [address] SUDHA YOUNG MD Caregiver [address] [place] [address] KYLE CRAWFORD Next Of Kin [address] [place] [address] Insurance Providers Payer Name Policy Number Subscriber Name Relationship Medicare [id number] Shadi Crawford 18 Self Medicaid [place] [id number] Shadi Crawford 18 Self Problems Medical Problems [...] F (96.8 - 99.1) Temperature (Calculated Celsius) 36.39106 degrees C (36.0 - 37.3) Pulse Rate [...] 03, 2011 10:17pm LAB TEST FORM REQUEST [id number] - Lipase January 21, 2008 10:00pm 135 [...] 5:52pm None seen /HPF - Urine Specific [place] January 03, 2011 5:52pm 1.025 - Urine [...] Encounters Encounter Location Date/Time Registered Emergency Room [facility] 06/10/14 5:59pm Recent Diagnosis
--- OUTSIDE RECORDS SUMMARY | 2017-01-03 01:42 | XMS REPORT | Continuity of Care Document ---
Author Author [facility] Organization [facility] Address Unknown Phone Unavailable Allergies Active Description [...] MORPHINE 4MG/1ML SYRINGE ML 09/27/2015 09/26/2016 IVP [id number] OXYcodone/ACETAMINOPHEN 10-325 MG TABLET TAB 09/27/20152016 PO [id number] BISACODYL 10MG SUPPOS. SUP 09/27/2015 09/26/2016 [place]* PRN ONDANSETRON 4MG TABLET TAB 09/27/2015 09/26/2016 PO [id number] DIAZEPAM 5MG TABLET TAB 09/27/2015 09/26/2016 PO [id number] BISACODYL 5MG TABLET TAB 09/27/2015 09/26/2016 PO PRN SODIUM CHLORIDE 0.9% 1000ML IV SOLN BAG 09/27/2015 09/28/2015 LVP 100ML/HR ONDANSETRON 4MG/2ML INJ VL 09/27/2015 09/26/2016 IVP [id number] hydroMORPHONE 2MG/1ML INJ ML 09/27/2015 09/27/2015 IV POST-OP ONDANSETRON 4MG/2ML INJ VL 09/27/2015 09/27/2015 IV POST-OP METOCLOPRAMIDE 10MG/2ML INJ VL 09/27/2015 09/27/2015 IVP ONCE METOCLOPRAMIDE 10MG TABLET TAB 09/27/2015 09/26/2016 PO [id number] METOCLOPRAMIDE 10MG/2ML INJ VL 09/27/2015 09/26/2016 IVP [id number] *HYDROcodone/ACETAMINOPHEN 10-325 MG TABLET TAB 10/26/2015 PO [...] CONTRAST MYELOGRAM Baldemar ALBARRAN, Shahriar Suazo 08/07/2012 [id number] Fusion of Lumbosacral Joint with Autolog JENARO CABELLO 09/27/2015 [id number] Fusion of Lumbosacral Joint with Interbo JENARO CABELLO 09/27/2015 [id number] Resection of Lumbosacral Disc, Open Appr JENARO CABELLO 09/27/2015 [id number] Monitoring of Peripheral Nervous Electri JENARO CABELLO 09/27/2015 Results Test Result Range GRAM STAIN - 11/04/15 07:17 Microbiology GRAM STAIN - 11/04/15 07:18 Microbiology Encounters ACCT No. Visit Date/Time Discharge Status Pt. Type Provider Facility Loc./Unit Complaint [id number] 09/27/2015 11:02:00 09/30/2015 12: 23:00 DIS 01 JENARO CABELLO [facility] INPT NO KNOWN INJURY 09/27/15 RM,L5-S1 spondylolisthesis
[2017-01-03] MEDS ORDERED: NEOMYCIN/POLYM/BACITR OINT PACKET TOP ONE (01:45)
[2017-01-03 02:12] VITALS: BP 126/88; PULSE 83; RESP 16; O2SAT 98
--- NOTE | 2017-01-03 02:12 | NUR ---
DEPART PT IS DISCHARGED AT THIS TIME, INSTRUCTIONS ARE REVIEWED AND UNDERSTANDING IS VOICED. PT LEAVES AMBULATORY.
== END 2017-01-03 02:12 | disposition home or self-care (01) ==
LOC: ED 23:35
DX: S61.011A Laceration without foreign body of right thumb without damage to nail, initial encounter (principal); W28.XXXA Contact with powered lawn mower, initial encounter; Y93.89 Activity, other specified; Y92.009 Unspecified place in unspecified non-institutional (private) residence as the place of occurrence of the external cause; Y99.8 Other external cause status
CPT/HCPCS: 12001; 99283; A9270